=== PATIENT | female | born 1985 | race African-American/Black ===

== ENCOUNTER 2017-04-04 17:03 | Emergency (ER) | payer OTHER ==
[~2017-04-04] VITALS: Ht 157.5 cm; Wt 100.0 kg
[~2017-04-04 17:03] MED LIST: NOCURR
[2017-04-04 17:06] VITALS: BP 104/83
[2017-04-04] MEDS ORDERED: IBUPROFEN 800 MG TABLET PO ONE (18:15)
== END 2017-04-04 18:46 | disposition home or self-care (01) ==
LOC: EMS 17:06
DX: S63.602A Unspecified sprain of left thumb, initial encounter (principal); J45.909 Unspecified asthma, uncomplicated; F12.90 Cannabis use, unspecified, uncomplicated; F17.210 Nicotine dependence, cigarettes, uncomplicated; W22.01XA Walked into wall, initial encounter; Y93.89 Activity, other specified; Y92.89 Other specified places as the place of occurrence of the external cause; Y99.8 Other external cause status
CPT/HCPCS: 99284